=== PATIENT | male | born 2005 | race Caucasian/White ===

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

== ENCOUNTER 2025-07-24 21:40 | Emergency (ER) | payer MEDICAID ==
[~2025-07-24] VITALS: Ht 175.3 cm; Wt 64.6 kg
[2025-07-24] MEDS ORDERED: CIPR10DR RIGHT EAR (22:09)
--- NOTE | 2025-07-24 22:09 | Physician Documentation ---
History of Present Illness ~ Chief Complaint: Ear Pain Stated Complaint: EAR INFECTION Time Seen by MD: 22:02 Primary Medical Doctor: NONE HPI R ear pain x 1 week. Denies fever, N/V/D, sore throat, cough. Medication Reconciliation Allergies: Uncoded Allergies: PENICILLIN (Allergy, Unknown, 12/20/17) Past Medical History Past Medical History: No Pertinent History Past Surgical History: noncontributory Alcohol Use: None Drug Use: none Lives with: Family Lives In: Home Occupation: student, child Review of Systems All Other Systems at this time: Reviewed and Negative Physical Exam Vital Signs: RN Vital Signs have been reviewed: Yes, Temperature: 98.0, Source: Oral, Heart Rate: 108, Respiratory Rate: 16, BP: 136/77, Pulse Oximetry: 98, We ight: 64.600 Oxygen Flow Rate: 0 Physical Exam HEENT: PERRL, moist oral mucosa, EOMI; R ear tender to movement, with some serous drainage and swelling of external ear canal Pulmonary: No respiratory distress GI: nondistended, soft, nontender, no guarding, no rebound MSK: no deformity Skin: w/d/i, no rash Neuro: alert, nonfocal Psych: normal affect Progress Results/Orders Results/Orders Vital Signs 07/24/25 21:41 Temp 98.0 Pulse 108 Resp 16 B/P (MAP) 136/77 Pulse Ox 98 O2 Flow Rate 0 Medical Decision Making Findings 19 year old male with apparent otitis externa. Otic antibiotics, return prec autions. Departure Disposition: HOME / SELF CARE / HOMELESS Impression: Primary Impression: Otitis externa Condition: Stable Discharge Instructions: Otitis Externa Referrals: NO PRIMARY CARE PROVIDER (PCP) Prescriptions Ciprofloxacin Hcl/Hc Otic Susp* (Cipro Hc Otic Susp*) 10 Ml Bottle 3 DRP RIGHT EAR BID, #1 BOTTLE SHAKE WELL BEFORE USING Prov: ULISES WALL MD 07/24/25 Education Educated: Patient Educated regarding: diagnosis, treatment, prognosis, need for follow up Signature Scribe Signature: . Attestation: . ULISES WALL MD Jul 24, 2025 22:09
[2025-07-24 23:03] VITALS: BP 135/72; PULSE 99; RESP 18; TEMP 98.6; O2SAT 99
== END 2025-07-24 23:05 | disposition home or self-care (01) ==
LOC: ER 21:41
DX: H60.91 Unspecified otitis externa, right ear (principal)
CPT/HCPCS: 99283

== ENCOUNTER 2025-08-14 23:34 | Emergency (ER) | payer MEDICAID ==
[~2025-08-14] VITALS: Ht 175.3 cm; Wt 75.0 kg
[~2025-08-14 23:34] MED LIST: CIPR10DR RIGHT EAR
[2025-08-14 23:53] VITALS: BP 134/77; PULSE 89; RESP 15; TEMP 98.6; O2SAT 100
[2025-08-15 00:13] LABS: STREP A SCREEN NEGATIVE (Neg)
--- NOTE | 2025-08-15 01:51 | Physician Documentation ---
History of Present Illness ~ Chief Complaint: Sore Throat Stated Complaint: THROAT PAIN Time Seen by MD: 01:50 Primary Medical Doctor: NONE HPI 19-year-old male presenting with a sore throat He tells me that for the past 3 weeks he has been having a dry sore throat. He has been intermittently coughing. He states it is worse when he goes out in the heat. He also intermittently has been feeling hot, possibly having fevers. He has tried multiple treatments. He states that wearing a mask and using a hu midifier seems to help. He has been taking allergy medications and [id number] cough and cold medications with minimal relief. He tells me that sometimes he has been losing his voice although not currently. No significant difficulty swallowing or breathing. No significant neck swelling. No other associated symptoms He does have seasonal allergies, asthma and eczema Medication Reconciliation Allergies: Coded Allergies: Penicillins (Verified Allergy, Unknown, 08/14/25) Scheduled Prednisone* (Prednisone*), 2 TAB PO DAILY Scheduled PRN albuterol inhaler (Pro-Air Inhaler), 2 PUFFS INH Q4HPRN PRN for wheezing Discontinued Medications Ciprofloxacin Hcl/Hc Otic Susp* (Cipro Hc Otic Susp*), 3 DRP RIGHT EAR BID Discontinued Reason: completed med therapy Past Medical History Past Medical History: No Pertinent History Past Surgical History: noncontributory Alcohol Use: None Drug Use: none Lives with: Family Lives In: Home Occupation: student, child Review of Systems Constitutional: Reports: fever ENT: Reports: throat pain, voice change Physical Exam Vital Signs: Temperature: 98.6, Source: Temporal, Heart Rate: 89, Respiratory Rate: 15, BP: 134/77, Pulse Oximetry: 100, Weight: 75.000 Physical Exam General: This is a very healthy and well-appearing young man sitting calmly in bed HEENT: Atraumatic, oropharynx is moist. Mild generalized posterior oropharyngeal erythema without significant beefy red erythema, no unilateral swelling, no white exudate, he is swallowing secretions without difficulty, voice is normal Neck: No tender lymphadenopathy or swelling Heart: Regular rate and rhythm, normal-appearing peripheral perfusion Lungs: Clear breath sounds bilateral, normal work of breathing, no wheezing Neuro: Alert and oriented Psychiatric: Calm and cooperative with exam Progress Results/Orders Results/Orders Completed Orders - KERRY PRICE MD Prednisone Tablet (Prednisone Tablet) (08/15/25 02:10) Vital Signs 08/14/25 23:53 Temp 98.6 Pulse 89 Resp 15 B/P (MAP) 134/77 Pulse Ox 100 Laboratory Tests Test 08/14/25 23:58 Group A Streptococcus Rapid Negative Medical Decision Making Additional Comment The patient presents with 3 weeks of a sore throat, and intermittently losing his voice. Per his history and exam there was no evidence of a dangerous throat infection or deep space neck infection. Strep swab is negative. Lung exam is normal. Overall, I suspect he has either seasonal allergies, laryngitis, or is recovering from a viral infection. No findings to suggest a more dangerous process. He will be treated with a course of steroids. He did request an albuterol inhaler for intermittent asthma symptoms. Otherwise I do not feel that he requires antibiotics or other more aggressive workup or treatment. He will be discharged with outpatient follow up. Departure Time of Disposition: 02:09 Disposition: 01 HOME / SELF CARE / HOMELESS Impression: Primary Impression: Laryngitis Discharge Instructions: Laryngitis Referrals: NO PRIMARY CARE PROVIDER (PCP) Prescriptions Prednisone* (Prednisone*) 20 Mg Tablet 2 TAB PO DAILY for 4 Days, #8 TAB Prov: KERRY PRICE MD 08/15/25 albuterol inhaler (Pro-Air Inhaler) 8.5 Gm Inhaler 2 PUFFS INH Q4HPRN PRN for wheezing for 30 Days, #18 GM Prov: KERRY PRICE MD 08/15/25 Education Educated: Patient Educated regarding: diagnosis, treatment, need for follow up Signature Scribe Signature: tammy Attestation: KERRY Warren MD Aug 15, 2025 01:51
[2025-08-15] MEDS ORDERED: PRED20TA PO (02:10)
[2025-08-15] MEDS ORDERED: ALBU8HFA INH (02:10)
== END 2025-08-15 02:34 | disposition home or self-care (01) ==
LOC: ER 23:35
DX: J04.0 Acute laryngitis (principal); J02.9 Acute pharyngitis, unspecified; Z88.0 Allergy status to penicillin; Z88.8 Allergy status to other drugs, medicaments and biological substances
CPT/HCPCS: 87081; 87880; 99283; J7512